=== PATIENT | female | born 2005 | race African-American/Black ===

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

== ENCOUNTER → 2024-08-17 | Emergency (ER) | payer MEDICAID ==
[~2024-08-17] VITALS: Ht 157.5 cm; Wt 58.9 kg
[~2024-08-17] MED LIST: CODE473S7 MT
[2024-08-17 11:40] VITALS: TEMP 98.2; O2SAT 100
[2024-08-17 13:36] VITALS: BP 107/68; PULSE 105; RESP 17; O2SAT 100
== END ==
LOC: ER 18:13
DX: J06.9 Acute upper respiratory infection, unspecified (principal)
CPT/HCPCS: 99283